=== PATIENT | male | born 1975 | race Caucasian/White ===

== ENCOUNTER 2020-07-10 17:36 | Emergency (ER) | payer BC ==
[~2020-07-10] VITALS: Ht 190.5 cm; Wt 106.7 kg
--- NOTE | 2020-07-10 18:31 | NUR ---
Pt c/o recurrent problem where can't swallow, frequently throw up when it happens. He will swallow something and it will come back up. Has had issue with heartburn in the past, where he made changes such as getting wedge changed what he ate. He can swallow drinks, but has issue with solid food, feels that it is exacerbated with meat. Seems like it has been happening more frequently. This morning had spoon of granola cereal and had vomiting and drool. Stopped emesis approximately 1600. CT done at [place], brought disk.
[2020-07-10 18:36] VITALS: BP 118/85
--- NOTE | 2020-07-10 18:52 | NUR ---
report to myrna barr
--- NOTE | 2020-07-10 19:15 | NUR ---
ESOPHOGRAM COMPLETE AND PT BACK TO ROOM. MD SHAWNA REID PT.
== END 2020-07-10 20:12 | disposition home or self-care (01) ==
LOC: ED 19:47
DX: K44.9 Diaphragmatic hernia without obstruction or gangrene (principal); R11.2 Nausea with vomiting, unspecified
CPT/HCPCS: 74220; 99283